=== PATIENT | female | born 2005 | race Caucasian/White ===

== ENCOUNTER 2024-05-24 10:19 | Emergency (ER) | payer BC ==
[2024-05-24] MEDS ORDERED: Ondansetron ODT 4 MG TAB ONE (10:44)
[2024-05-24 11:00] LABS: Bilirubin Negative (Negative); Blood, Urine Negative (Negative); Clarity Clear (Clear); Glucose, Urine (Dipstick) Negative (Negative); Ketone, Urine Negative (Negative); Leukocyte Negative (Negative); Nitrite Negative (Negative); Protein, Urine (Dipstick) Negative (Neg-Trace); Urobilinogen 0.2 mg/dL (Less than 2); pH, Urine 6.5 (5.0-9.0)
== END 2024-05-24 11:25 | disposition home or self-care (01) ==
LOC: NAV ERS 10:19
DX: B34.9 Viral infection, unspecified (principal); R11.2 Nausea with vomiting, unspecified
CPT/HCPCS: 81001; 87400; 87426; 99284; Q0162